=== PATIENT | female | born 1955 ===

== ENCOUNTER 2022-11-25 18:48 | Inpatient (IN) | payer MEDICARE ==
[~2022-11-25] VITALS: Ht 160 cm; Wt 52.2 kg
[2022-11-25 19:05] VITALS: BP 90/50
[2022-11-25] MEDS ORDERED: REMEDY ESSENTIAL ZINC PASTE 113 GM TOP PRN (20:30)
[2022-11-25] MEDS ORDERED: SENN-261 PO (20:35)
[2022-11-25] MEDS ORDERED: TIZA-180 PO (20:35)
[2022-11-25] MEDS ORDERED: MUPI15CR TP (20:35)
[2022-11-25] MEDS ORDERED: DOCU100C36 PO (20:35)
[2022-11-25] MEDS ORDERED: DIPH1TAB PO (20:35)
[2022-11-25] MEDS ORDERED: OXYC20TA42 PO (20:35)
[2022-11-25] MEDS ORDERED: ACET-3117 PO (20:35)
[2022-11-25] MEDS ORDERED: CETI10CA8 PO (20:35)
[2022-11-25] MEDS ORDERED: SILV50CR32 TP (20:35)
[2022-11-25] MEDS ORDERED: GABA800T11 PO (20:35)
[2022-11-25] MEDS ORDERED: TIZA4CAP6 PO (22:43)
[2022-11-26] MEDS: MORPHINE SULFATE SR 30 MG TABLET.SA PO SCH ×3 (00:23→20:05)
[2022-11-26] MEDS ORDERED: DOCUSATE SODIUM 100 MG CAPSULE PO PRN (02:00)
[2022-11-26 08:00] VITALS: BP 96/55
[2022-11-26] MEDS ORDERED: ESCI20TA PO (09:46)
[2022-11-26] MEDS ORDERED: D-AM5CAP2 PO (09:46)
[2022-11-26] MEDS ORDERED: CLON0.5T PO (09:46)
[2022-11-26] MEDS: TIZANIDINE HCL 4 MG TABLET PO PRN ×2 (10:12→21:07)
[2022-11-26 12:00] VITALS: BP 95/43
[2022-11-26] MEDS: CLONAZEPAM 0.5 MG TABLET PO SCH ×2 (12:03→17:10)
[2022-11-26] MEDS ORDERED: GABA800T11 PO (13:26)
[2022-11-26] MEDS ORDERED: CYCL30DR OP (13:29)
[2022-11-26] MEDS ORDERED: MUPI22OI2 TP (13:35)
[2022-11-26] MEDS: OXYCODONE HCL 5 MG TABLET PO PRN (14:46)
[2022-11-26] MEDS: ENOXAPARIN SODIUM 40 MG/0.4 ML DISP.SYRIN SQ SCH (17:31)
[2022-11-26 20:00] VITALS: BP 103/56
[2022-11-27] MEDS: OXYCODONE HCL 5 MG TABLET PO PRN ×3 (04:48→16:57)
[2022-11-27] MEDS: SIMETHICONE 80 MG TAB.CHEW PO PRN (04:55)
[2022-11-27 05:55] VITALS: BP 109/56
[2022-11-27 06:49] LABS: HEMATOCRIT 22.5 % (31.2-41.9); MEAN CORPUSCULAR VOLUME 92.8 fL (75.5-95.3); PLATELET COUNT (AUTO) 292 K/uL (179-408)
[2022-11-27 07:27] LABS: CARBON DIOXIDE 29 mmol/L (21-32); CHLORIDE 103 mmol/L (98-107); CREATININE 0.4 mg/dL (0.6-1.3); GLUCOSE 97 mg/dL (74-106); MAGNESIUM 1.4 mg/dL (1.8-2.4); PHOSPHOROUS 3.1 mg/dL (2.5-4.9); POTASSIUM 3.8 mmol/L (3.5-5.1); UREA NITROGEN, BLOOD 5 mg/dL (7-18)
[2022-11-27 08:00] VITALS: BP 120/67
[2022-11-27] MEDS: ESCITALOPRAM OXALATE 10 MG TABLET PO SCH (08:40)
[2022-11-27] MEDS: CLONAZEPAM 0.5 MG TABLET PO SCH ×3 (08:40→16:18)
[2022-11-27] MEDS: MORPHINE SULFATE SR 30 MG TABLET.SA PO SCH ×2 (08:41→20:18)
[2022-11-27] MEDS: TIZANIDINE HCL 4 MG TABLET PO PRN ×2 (09:16→20:19)
[2022-11-27] MEDS: MAGNESIUM OXIDE 400 MG TABLET PO SCH ×2 (11:22→16:18)
[2022-11-27] MEDS ORDERED: MAGNESIUM OXIDE 400 MG TABLET PO ONE (12:00)
[2022-11-27 15:52] VITALS: BP 98/54
[2022-11-27] MEDS: CLOTRIMAZOLE 1% CREAM 30 GM TUBE TOP SCH (16:18)
[2022-11-27] MEDS: ENOXAPARIN SODIUM 40 MG/0.4 ML DISP.SYRIN SQ SCH (16:19)
[2022-11-27 20:00] VITALS: BP 114/66
[2022-11-27] MEDS: ACETAMINOPHEN 325 MG TABLET PO PRN (20:17)
[2022-11-28] MEDS: OXYCODONE HCL 5 MG TABLET PO PRN ×5 (00:52→23:08)
[2022-11-28 04:00] VITALS: BP 102/62
[2022-11-28] MEDS: TIZANIDINE HCL 4 MG TABLET PO PRN ×2 (07:00→15:03)
[2022-11-28 08:00] VITALS: BP 97/50
[2022-11-28] MEDS: ESCITALOPRAM OXALATE 10 MG TABLET PO SCH (08:23)
[2022-11-28] MEDS: CLONAZEPAM 0.5 MG TABLET PO SCH ×3 (08:23→16:28)
[2022-11-28] MEDS: MORPHINE SULFATE SR 30 MG TABLET.SA PO SCH ×2 (08:23→21:36)
[2022-11-28] MEDS: CLOTRIMAZOLE 1% CREAM 30 GM TUBE TOP SCH ×2 (08:25→16:35)
[2022-11-28] MEDS: SIMETHICONE 80 MG TAB.CHEW PO PRN ×2 (10:34→18:43)
[2022-11-28 16:00] VITALS: BP 92/56
[2022-11-28] MEDS: ENOXAPARIN SODIUM 40 MG/0.4 ML DISP.SYRIN SQ SCH (16:29)
[2022-11-28 20:00] VITALS: BP 100/59
[2022-11-28 21:47] VITALS: BP 108/54
[2022-11-29] MEDS: TIZANIDINE HCL 4 MG TABLET PO PRN ×3 (02:50→21:49)
[2022-11-29 08:00] VITALS: BP 99/94
[2022-11-29] MEDS: CLONAZEPAM 0.5 MG TABLET PO SCH ×3 (08:58→17:18)
[2022-11-29] MEDS: MORPHINE SULFATE SR 30 MG TABLET.SA PO SCH ×2 (08:58→20:46)
[2022-11-29] MEDS: ESCITALOPRAM OXALATE 10 MG TABLET PO SCH (08:58)
[2022-11-29] MEDS: CLOTRIMAZOLE 1% CREAM 30 GM TUBE TOP SCH ×2 (09:00→18:04)
[2022-11-29] MEDS: OXYCODONE HCL 5 MG TABLET PO PRN (11:43)
[2022-11-29] MEDS: ENOXAPARIN SODIUM 40 MG/0.4 ML DISP.SYRIN SQ SCH (17:18)
[2022-11-29 20:00] VITALS: BP 111/69
[2022-11-30] MEDS: OXYCODONE HCL 5 MG TABLET PO PRN ×3 (01:09→17:36)
[2022-11-30 03:53] VITALS: BP 90/44
[2022-11-30] MEDS: TIZANIDINE HCL 4 MG TABLET PO PRN ×3 (07:48→23:38)
[2022-11-30 08:06] VITALS: BP 124/76
[2022-11-30] MEDS: ESCITALOPRAM OXALATE 10 MG TABLET PO SCH (09:05)
[2022-11-30] MEDS: CLONAZEPAM 0.5 MG TABLET PO SCH ×3 (09:05→17:26)
[2022-11-30] MEDS: MORPHINE SULFATE SR 30 MG TABLET.SA PO SCH ×2 (09:05→21:36)
[2022-11-30] MEDS: CLOTRIMAZOLE 1% CREAM 30 GM TUBE TOP SCH ×2 (09:06→17:31)
[2022-11-30] MEDS: SIMETHICONE 80 MG TAB.CHEW PO PRN (13:05)
[2022-11-30 15:51] VITALS: BP 91/58
[2022-11-30] MEDS: ENOXAPARIN SODIUM 40 MG/0.4 ML DISP.SYRIN SQ SCH (17:26)
[2022-11-30 20:00] VITALS: BP 94/54
[2022-12-01 04:00] VITALS: BP 96/60
[2022-12-01] MEDS: OXYCODONE HCL 5 MG TABLET PO PRN ×3 (04:03→18:16)
[2022-12-01] MEDS: TIZANIDINE HCL 4 MG TABLET PO PRN ×3 (07:04→23:02)
[2022-12-01 07:46] VITALS: BP 90/53
[2022-12-01] MEDS: CLONAZEPAM 0.5 MG TABLET PO SCH ×3 (08:51→18:09)
[2022-12-01] MEDS: MORPHINE SULFATE SR 30 MG TABLET.SA PO SCH ×2 (08:52→20:44)
[2022-12-01] MEDS: ESCITALOPRAM OXALATE 10 MG TABLET PO SCH (08:52)
[2022-12-01] MEDS: CLOTRIMAZOLE 1% CREAM 30 GM TUBE TOP SCH ×2 (09:16→18:09)
[2022-12-01 15:53] VITALS: BP 98/50
[2022-12-01] MEDS: ENOXAPARIN SODIUM 40 MG/0.4 ML DISP.SYRIN SQ SCH (18:10)
[2022-12-01 20:40] VITALS: BP 95/53
[2022-12-02 04:29] VITALS: BP 93/48
[2022-12-02] MEDS: OXYCODONE HCL 5 MG TABLET PO PRN ×3 (05:46→18:06)
[2022-12-02] MEDS: TIZANIDINE HCL 4 MG TABLET PO PRN ×3 (07:42→23:48)
[2022-12-02 08:00] VITALS: BP 117/49
[2022-12-02] MEDS: CLONAZEPAM 0.5 MG TABLET PO SCH ×3 (08:11→16:35)
[2022-12-02] MEDS: MORPHINE SULFATE SR 30 MG TABLET.SA PO SCH ×2 (08:12→20:37)
[2022-12-02] MEDS: ESCITALOPRAM OXALATE 10 MG TABLET PO SCH (08:12)
[2022-12-02] MEDS: CLOTRIMAZOLE 1% CREAM 30 GM TUBE TOP SCH ×2 (08:13→16:39)
[2022-12-02 16:05] VITALS: BP 96/50
[2022-12-02] MEDS: ENOXAPARIN SODIUM 40 MG/0.4 ML DISP.SYRIN SQ SCH (16:36)
[2022-12-02 20:23] VITALS: BP 85/44
[2022-12-03 04:21] VITALS: BP 87/44
[2022-12-03] MEDS: OXYCODONE HCL 5 MG TABLET PO PRN ×3 (06:22→16:39)
[2022-12-03] MEDS: TIZANIDINE HCL 4 MG TABLET PO PRN ×3 (09:17→20:57)
[2022-12-03] MEDS: ESCITALOPRAM OXALATE 10 MG TABLET PO SCH (09:17)
[2022-12-03] MEDS: CLONAZEPAM 0.5 MG TABLET PO SCH ×3 (09:17→16:24)
[2022-12-03] MEDS: MORPHINE SULFATE SR 30 MG TABLET.SA PO SCH ×2 (09:18→20:58)
[2022-12-03] MEDS: CLOTRIMAZOLE 1% CREAM 30 GM TUBE TOP SCH ×2 (09:20→16:40)
[2022-12-03] MEDS: ENOXAPARIN SODIUM 40 MG/0.4 ML DISP.SYRIN SQ SCH (16:26)
[2022-12-03] MEDS: SIMETHICONE 80 MG TAB.CHEW PO PRN (16:29)
[2022-12-03 20:30] VITALS: BP 90/48
[2022-12-04] MEDS: OXYCODONE HCL 5 MG TABLET PO PRN ×4 (05:05→21:26)
[2022-12-04 05:15] VITALS: BP 90/51
[2022-12-04] MEDS: TIZANIDINE HCL 4 MG TABLET PO PRN ×3 (05:30→21:26)
[2022-12-04 07:35] VITALS: BP 93/56
[2022-12-04] MEDS: CLONAZEPAM 0.5 MG TABLET PO SCH ×3 (08:28→16:44)
[2022-12-04] MEDS: MORPHINE SULFATE SR 30 MG TABLET.SA PO SCH ×2 (08:28→21:27)
[2022-12-04] MEDS: ESCITALOPRAM OXALATE 10 MG TABLET PO SCH (08:29)
[2022-12-04] MEDS: CLOTRIMAZOLE 1% CREAM 30 GM TUBE TOP SCH ×2 (08:29→16:50)
[2022-12-04 16:00] VITALS: BP 84/50
[2022-12-04] MEDS: ENOXAPARIN SODIUM 40 MG/0.4 ML DISP.SYRIN SQ SCH (16:47)
[2022-12-04 20:01] VITALS: BP 92/56
[2022-12-05 04:10] VITALS: BP 93/48
[2022-12-05] MEDS: OXYCODONE HCL 5 MG TABLET PO PRN ×4 (04:20→23:30)
[2022-12-05 05:25] LABS: HEMATOCRIT 22.8 % (31.2-41.9); MEAN CORPUSCULAR HEMOGLOBIN 31.6 uug (24.7-32.8); MEAN CORPUSCULAR VOLUME 94.2 fL (75.5-95.3); PLATELET COUNT (AUTO) 428 K/uL (179-408)
[2022-12-05 06:21] LABS: CREATININE 0.5 mg/dL (0.6-1.3); MAGNESIUM 1.7 mg/dL (1.8-2.4); PHOSPHOROUS 4.4 mg/dL (2.5-4.9)
[2022-12-05 08:00] VITALS: BP 102/56
[2022-12-05] MEDS: TIZANIDINE HCL 4 MG TABLET PO PRN ×2 (08:11→16:15)
[2022-12-05] MEDS: CLONAZEPAM 0.5 MG TABLET PO SCH ×3 (08:11→16:15)
[2022-12-05] MEDS: MORPHINE SULFATE SR 30 MG TABLET.SA PO SCH ×2 (08:12→20:19)
[2022-12-05] MEDS: ESCITALOPRAM OXALATE 10 MG TABLET PO SCH (08:13)
[2022-12-05] MEDS: CLOTRIMAZOLE 1% CREAM 30 GM TUBE TOP SCH ×2 (08:14→16:21)
[2022-12-05] MEDS ORDERED: MAGNESIUM OXIDE 400 MG TABLET PO ONE (12:00)
[2022-12-05 16:00] VITALS: BP 105/56
[2022-12-05] MEDS: ENOXAPARIN SODIUM 40 MG/0.4 ML DISP.SYRIN SQ SCH (16:17)
[2022-12-05 20:15] VITALS: BP 86/47
[2022-12-06] MEDS: TIZANIDINE HCL 4 MG TABLET PO PRN ×3 (00:30→18:21)
[2022-12-06 04:20] VITALS: BP 90/52
[2022-12-06] MEDS: OXYCODONE HCL 5 MG TABLET PO PRN ×3 (04:57→20:21)
[2022-12-06 08:07] VITALS: BP 94/55
[2022-12-06] MEDS: MORPHINE SULFATE SR 30 MG TABLET.SA PO SCH ×2 (08:59→16:37)
[2022-12-06] MEDS: CLOTRIMAZOLE 1% CREAM 30 GM TUBE TOP SCH ×2 (09:00→18:13)
[2022-12-06] MEDS: ESCITALOPRAM OXALATE 10 MG TABLET PO SCH (09:00)
[2022-12-06] MEDS: CLONAZEPAM 0.5 MG TABLET PO SCH ×3 (09:00→16:36)
[2022-12-06] MEDS: ACETAMINOPHEN 325 MG TABLET PO PRN (14:35)
[2022-12-06 16:15] VITALS: BP 99/60
[2022-12-06] MEDS: ENOXAPARIN SODIUM 40 MG/0.4 ML DISP.SYRIN SQ SCH (16:39)
[2022-12-06] MEDS: SIMETHICONE 80 MG TAB.CHEW PO PRN (18:21)
[2022-12-06 20:00] VITALS: BP 90/52
[2022-12-07] MEDS: OXYCODONE HCL 5 MG TABLET PO PRN ×3 (00:39→16:29)
[2022-12-07 04:51] VITALS: BP 104/82
[2022-12-07] MEDS: MORPHINE SULFATE SR 30 MG TABLET.SA PO SCH ×3 (05:51→21:14)
[2022-12-07 06:53] LABS: HEMATOCRIT 26.8 % (31.2-41.9); MEAN CORPUSCULAR HEMOGLOBIN 30.6 uug (24.7-32.8); MEAN CORPUSCULAR VOLUME 94.5 fL (75.5-95.3); PLATELET COUNT (AUTO) 598 K/uL (179-408)
[2022-12-07 07:52] LABS: THYROID STIMULATING HORMONE 4.044 mIU/mL (0.358-3.740)
[2022-12-07 08:08] VITALS: BP 141/70
[2022-12-07] MEDS: CLOTRIMAZOLE 1% CREAM 30 GM TUBE TOP SCH ×2 (08:13→16:29)
[2022-12-07] MEDS: TIZANIDINE HCL 4 MG TABLET PO PRN ×2 (08:13→16:36)
[2022-12-07] MEDS: ESCITALOPRAM OXALATE 10 MG TABLET PO SCH (08:14)
[2022-12-07] MEDS: CLONAZEPAM 0.5 MG TABLET PO SCH ×3 (08:14→16:25)
[2022-12-07 08:30] LABS: BILIRUBIN,TOTAL 0.1 mg/dL (0.2-1.0); CREATININE 0.5 mg/dL (0.6-1.3); MAGNESIUM 1.6 mg/dL (1.8-2.4); POTASSIUM 3.8 mmol/L (3.5-5.1); TOTAL PROTEIN, SERUM 6.7 g/dL (6.4-8.2)
[2022-12-07] MEDS ORDERED: MAGNESIUM OXIDE 400 MG TABLET PO ONE (12:00)
[2022-12-07 15:52] VITALS: BP 106/58
[2022-12-07] MEDS: ENOXAPARIN SODIUM 40 MG/0.4 ML DISP.SYRIN SQ SCH (16:27)
[2022-12-07 20:00] VITALS: BP 93/57
[2022-12-08] MEDS: TIZANIDINE HCL 4 MG TABLET PO PRN ×3 (02:05→20:25)
[2022-12-08 04:00] VITALS: BP 93/56
[2022-12-08] MEDS: MORPHINE SULFATE SR 30 MG TABLET.SA PO SCH ×2 (05:32→14:11)
[2022-12-08 08:09] VITALS: BP 104/60
[2022-12-08] MEDS: ESCITALOPRAM OXALATE 10 MG TABLET PO SCH (08:54)
[2022-12-08] MEDS: FERROUS SULFATE 325 MG TABEC PO SCH (08:54)
[2022-12-08] MEDS: CLOTRIMAZOLE 1% CREAM 30 GM TUBE TOP SCH ×2 (08:56→16:46)
[2022-12-08] MEDS: CLONAZEPAM 0.5 MG TABLET PO SCH ×3 (08:56→16:45)
[2022-12-08] MEDS: OXYCODONE HCL 5 MG TABLET PO PRN ×3 (10:28→21:19)
[2022-12-08 15:55] VITALS: BP 98/48
[2022-12-08] MEDS ORDERED: RIVAROXABAN 10 MG TABLET PO SCH (18:00)
[2022-12-08 18:39] VITALS: BP 98/58
[2022-12-08 20:42] VITALS: BP 90/54
[2022-12-09] MEDS: OXYCODONE HCL 5 MG TABLET PO PRN ×3 (02:10→15:16)
[2022-12-09 04:30] VITALS: BP 109/66
[2022-12-09] MEDS: TIZANIDINE HCL 4 MG TABLET PO PRN ×2 (05:10→13:22)
[2022-12-09 08:00] VITALS: BP 116/59
[2022-12-09] MEDS: CLONAZEPAM 0.5 MG TABLET PO SCH ×2 (08:42→13:00)
[2022-12-09] MEDS: FERROUS SULFATE 325 MG TABEC PO SCH (08:42)
[2022-12-09] MEDS: CLOTRIMAZOLE 1% CREAM 30 GM TUBE TOP SCH (08:43)
[2022-12-09] MEDS: ESCITALOPRAM OXALATE 10 MG TABLET PO SCH (08:43)
== END 2022-12-09 15:30 | disposition home health service (06) | DRG 463 ==
PROVIDERS: ADMIT Physical Medicine & Rehabilitation Pain Medicine; ATTEND Physical Medicine & Rehabilitation Pain Medicine
PROC: 0JB70ZZ Excision of Back Subcutaneous Tissue and Fascia, Open Approach (ICD-10-PCS; principal; 2022-12-02)
DX: S72.001D Fracture of unspecified part of neck of right femur, subsequent encounter for closed fracture with routine healing (principal); E43 Unspecified severe protein-calorie malnutrition; L89.153 Pressure ulcer of sacral region, stage 3; D68.59 Other primary thrombophilia; Z96.641 Presence of right artificial hip joint; D64.9 Anemia, unspecified; M19.90 Unspecified osteoarthritis, unspecified site; W19.XXXD Unspecified fall, subsequent encounter; G89.4 Chronic pain syndrome; Z79.891 Long term (current) use of opiate analgesic; E83.42 Hypomagnesemia; M16.11 Unilateral primary osteoarthritis, right hip; Z88.0 Allergy status to penicillin; Z88.8 Allergy status to other drugs, medicaments and biological substances; Z86.19 Personal history of other infectious and parasitic diseases; Z53.29 Procedure and treatment not carried out because of patient's decision for other reasons; F41.9 Anxiety disorder, unspecified
CPT/HCPCS: 36415; 73502; 83550; 83735; 84100; 84443; 85025; 97535-GO-CO; A4663; A6209; A6213; J1650